=== PATIENT | female | born 1950 | race Hispanic/Latino ===

== ENCOUNTER 2018-01-24 21:34 | Emergency (ER) | payer MEDICARE ==
[~2018-01-24 21:34] MED LIST: GABA-531 PO; HYDR-4153 PO; HYDR25TA PO; INSU100V12 SQ; LISI40TA4 PO; METO50TA9 PO; NITR0.3T SL; PRAV20TA4 PO
[2018-01-24] MEDS ORDERED: METOCLOPRAMIDE 10 MG TABLET ONE (22:31)
== END 2018-01-24 22:38 | disposition home or self-care (01) ==
LOC: EDH 21:34
DX: R51 Headache (principal); E11.9 Type 2 diabetes mellitus without complications; I10 Essential (primary) hypertension; Z79.4 Long term (current) use of insulin

== ENCOUNTER → 2018-04-08 | Outpatient (CLI) | payer MEDICARE ==
[~2018-04-08] MED LIST changes: +DEXAMETHASONE SOD PHOSPHATE 10MG/ML 1ML VIAL ONE; +FENTANYL CITRATE PF 50 MCG/1 ML 2ML VIAL ONE; +GLYCOPYRROLATE 0.2 MG/ML 5 ML VIAL ONE; +LIDOCAINE PF 2% 5ML ABBOJECT ONE; +MIDAZOLAM HCL 1 MG/ML 2ML VIAL ONE; +NEOSTIGMINE 5MG/5ML SYR IV ONE; +PROPOFOL 10 MG/ML 20ML VIAL IV ONE
== END | disposition home or self-care (01) ==
LOC: SHCH 10:00
PROVIDERS: ATTEND Internal Medicine Cardiovascular Disease
DX: I35.0 Nonrheumatic aortic (valve) stenosis (principal)
CPT/HCPCS: 93306; J1100; J2001; J2250; J2704; J2710; J3010; J3490

== ENCOUNTER 2021-07-01 11:38 | Emergency (ER) | payer MEDICARE ==
[~2021-07-01] VITALS: Ht 162.6 cm; Wt 83.9 kg
[~2021-07-01 11:38] MED LIST changes: -DEXAMETHASONE SOD PHOSPHATE 10MG/ML 1ML VIAL ONE; -FENTANYL CITRATE PF 50 MCG/1 ML 2ML VIAL ONE; -GLYCOPYRROLATE 0.2 MG/ML 5 ML VIAL ONE; -LIDOCAINE PF 2% 5ML ABBOJECT ONE; -LISI40TA4 PO; +LISI40TA9 PO; -MIDAZOLAM HCL 1 MG/ML 2ML VIAL ONE; -NEOSTIGMINE 5MG/5ML SYR IV ONE; -PROPOFOL 10 MG/ML 20ML VIAL IV ONE
[2021-07-01 11:40] VITALS: BP 167/71
[2021-07-01] MEDS ORDERED: CYCLOBENZAPRINE HCL 10 MG TABLET PO ONE (12:30)
[2021-07-01] MEDS ORDERED: HYDROCODONE/ACETAMINOPHEN 5/325 MG TAB PO ONE (12:30)
[2021-07-01] MEDS ORDERED: KETOROLAC 30MG VIAL (30MG/ML) IM ONE (12:30)
[2021-07-01] MEDS ORDERED: NAPR-1180 PO (13:22)
[2021-07-01] MEDS ORDERED: CYCL10 PO (13:22)
[2021-07-01 13:31] VITALS: BP 157/82
[2021-07-04] MEDS ORDERED: SUCCINYLCHOLINE 200MG/10ML SYR ONE (08:55)
== END 2021-07-01 13:33 | disposition home or self-care (01) ==
LOC: EDH 11:38
DX: M54.41 Lumbago with sciatica, right side (principal); E11.9 Type 2 diabetes mellitus without complications; E78.00 Pure hypercholesterolemia, unspecified; I10 Essential (primary) hypertension; Z98.890 Other specified postprocedural states; Z79.899 Other long term (current) drug therapy
CPT/HCPCS: 72100; 96372; 99283; J1885

== ENCOUNTER → 2021-10-14 | Outpatient (CLI) | payer MEDICARE ==
[~2021-10-14] MED LIST changes: +CYCL10TA16 PO; +NAPR-1180 PO
== END | disposition home or self-care (01) ==
LOC: SHCH 08:29
PROVIDERS: ATTEND Internal Medicine Cardiovascular Disease
DX: I35.2 Nonrheumatic aortic (valve) stenosis with insufficiency (principal); I51.7 Cardiomegaly
CPT/HCPCS: 93306; 93356

== ENCOUNTER 2022-10-10 20:58 | Emergency (ER) | payer MEDICARE ==
[~2022-10-10] VITALS: Ht 160 cm; Wt 75.3 kg
[2022-10-10 21:35] LABS: APPEARANCE,URINE CLEAR (CLEAR); BILIRUBIN,URINE NEGATIVE (NEGATIVE); COLOR,URINE LIGHT-YELLOW (YELLOW); GLUCOSE, URINE (UA) 300 mg/dL (NEGATIVE); KETONES,URINE NEGATIVE (NEGATIVE); LEUKOCYTE ESTERASE ,URINE 250 Leu/uL (NEGATIVE); NITRATE,URINE NEGATIVE (NEGATIVE); OCCULT BLOOD,URINE NEGATIVE (NEGATIVE); PH,URINE 5.5 (5.0-8.0); PROTEIN,URINE 30 mg/dL (NEGATIVE); UROBILINOGEN,URINE 0.2 mg/dL (0.2-1.0)
[2022-10-10 21:39] LABS: BACTERIA,URINE RARE /HPF (None Seen); MUCUS,URINE RARE LPF (None Seen); SQUAMOUS EPITHELIAL CELL,UR RARE /HPF (0-2)
[2022-10-10] MEDS ORDERED: SULF1TAB42 PO (21:49)
[2022-10-10] MEDS ORDERED: CEFTRIAXONE 1G VIAL IM SCH (22:00)
[2022-10-10] MEDS ORDERED: LIDOCAINE HCL 1% 20 ML VIAL ONE (22:03)
[2022-10-10 22:15] VITALS: BP 152/68
== END 2022-10-10 22:17 | disposition home or self-care (01) ==
LOC: EDH 20:58
DX: N39.0 Urinary tract infection, site not specified (principal); E11.9 Type 2 diabetes mellitus without complications; E78.00 Pure hypercholesterolemia, unspecified; I10 Essential (primary) hypertension; Z79.899 Other long term (current) drug therapy; Z79.4 Long term (current) use of insulin; Z90.49 Acquired absence of other specified parts of digestive tract; Z98.890 Other specified postprocedural states
CPT/HCPCS: 99283; 87077; 87088; 87186; 81001; 96372; J0696

== ENCOUNTER 2022-10-24 16:56 | Emergency (ER) | payer MEDICARE ==
[~2022-10-24] VITALS: Ht 154.9 cm; Wt 84.4 kg
[~2022-10-24 16:56] MED LIST changes: +SULF1TAB42 PO
[2022-10-24 17:07] VITALS: BP 177/72
[2022-10-24 17:21] LABS: APPEARANCE,URINE CLEAR (CLEAR); BILIRUBIN,URINE NEGATIVE (NEGATIVE); COLOR,URINE LIGHT-YELLOW (YELLOW); GLUCOSE, URINE (UA) 200 mg/dL (NEGATIVE); KETONES,URINE NEGATIVE (NEGATIVE); LEUKOCYTE ESTERASE ,URINE NEGATIVE Leu/uL (NEGATIVE); NITRATE,URINE NEGATIVE (NEGATIVE); OCCULT BLOOD,URINE NEGATIVE (NEGATIVE); PH,URINE 5.5 (5.0-8.0); PROTEIN,URINE 20 mg/dL (NEGATIVE)
[2022-10-24 17:30] LABS: BACTERIA,URINE RARE /HPF (None Seen); MUCUS,URINE RARE LPF (None Seen); RBC,URINE 0-1 /HPF (0-1); SQUAMOUS EPITHELIAL CELL,UR FEW /HPF (0-2)
== END 2022-10-24 19:31 | disposition left against medical advice (07) ==
LOC: EDH 16:56
DX: M54.50 Low back pain, unspecified (principal); Z53.21 Procedure and treatment not carried out due to patient leaving prior to being seen by health care provider
CPT/HCPCS: 81001

== ENCOUNTER → 2022-12-25 | Outpatient (CLI) | payer MEDICARE | END | disposition home or self-care (01) | LOC: SHCH 10:00 | PROVIDERS: ATTEND Internal Medicine Cardiovascular Disease | DX: I35.0 Nonrheumatic aortic (valve) stenosis (principal) | CPT/HCPCS: 93306 ==

== ENCOUNTER → 2025-01-22 | Outpatient (CLI) | payer MEDICARE ==
[~2025-01-22] MED LIST changes: -HYDR-4153 PO; +HYDR25TA67 PO
--- NOTE | 2025-01-26 08:50 | HMCSR ---
APPROVED REPORT EXAM: Two-dimensional and M-mode echocardiogram with Doppler and color Doppler. INDICATION ICD: I35.0 Non-rheumatic aortic valve stenosis 2D Dimensions RVDd3.2 cmLVEF(%)63.9 (>50%)LVED Vol(simp.)86.0 mL IVSd0.9 (0.7-1.1cm)FS(%)35 %LVES Vol(simp.)29.0 mL LVDd4.6 (3.8-5.6cm)Ao Root(2D)2.6 (2.0-3.7cm)LVEF(%, simp.)66 % PWd0.9 (0.7-1.1cm)LVOT diam2.0 (1.8-2.4cm)LA ESV INDEX (BP)40.55 mL/m2 LVDs3.0 (2.5-4.0cm)IVC diam1.4 cm Aortic Valve AoV Vmax4.8 m/[place] GR92.3 mmHgLVOT Vmax1.2 m/s AoV VTI1.3 mAo Mean GR60.1 mmHgLVOT VTI0.32 m DERIC (VMAX)0.7 cm2Al P1/2T377 msAVA (VTI) 0.7 cm2 Mitral Valve MV E Vmax88.3 cm/sDECEL Cewi370 ms MV A Ckhu545.3 cm/sP 1/2 T65 ms E/A ratio0.8MVA (PHT)3.4 cm2 TDI E/E' Prlkog56.9E/E' Mgwmlpt40.9 Pulmonary Valve PV Vmax1.2 m/sPV VTI0.26 mPV Mean GR3 mmHg PV Peak GR5.6 mmHgPI End [place]. Emilio 0.9 cm/s Tricuspid Valve TR Vmax2.8 m/sRAP (EST) 3 hdUkZFYA75.2 mmHg TR Peak GR32.2 mmHg Left Ventricle Left ventricular cavity size is normal. There is normal LV segmental wall motion. There is normal lef t ventricular wall thickness. LVEF is 60-65%. Stage I diastolic dysfunction. Right Ventricle The right ventricle is normal size. The right ventricular systolic function is normal. Atria The left atrium is mildly dilated. The right atrium size is normal. Aortic Valve Aortic valve is trileaflet. The aortic valve is calcified and displays decreased opening. Mild aortic regurgitation. AV Dimensionless Index is 0.25 There is severe valvular aortic stenosis. Calculated a ortic valve area is 0.7 cm2 with maximum pressure gradient of 92 mmHg and mean pressure gradient of 6 0 mmHg. Mitral Valve Mitral valve leaflets are mildly calcified. Mitral annular calcification is mild. Mitral regurgitatio n is trace to mild. There is no mitral valve stenosis. Tricuspid Valve The tricuspid valve leaflets appear normal. There is mild tricuspid regurgitation. Right ventricular systolic pressure is estimated at 30-40 mmHg. Pulmonic Valve Pulmonic valve is not well visualized. There is trace pulmonic valvular regurgitation. Great Vessels The aortic root is normal in size. The IVC is normal in size and collapses >50% with inspiration. Pericardium No pericardial effusion. Conclusion LVEF is 60-65%. Stage I diastolic dysfunction. Aortic valve is trileaflet. The aortic valve is calcified and displays decreased opening. Mild aortic regurgitation. There is severe valvular aortic stenosis. Calculated aortic valve area is 0.7 cm2 with maximum pressu re gradient of 92.3 mmHg and mean pressure gradient of 60.1 mmHg.There is severe valvular aortic sten osis. Calculated aortic valve area is 0.7 cm2 with maximum pressure gradient of 92 mmHg and mean pre ssure gradient of 60 mmHg. Mitral regurgitation is trace to mild. There is mild tricuspid regurgitation. Right ventricular systolic pressure is estimated at 30-40 mmHg.
== END | disposition home or self-care (01) ==
LOC: SHCH 15:08
PROVIDERS: ATTEND Internal Medicine Cardiovascular Disease
DX: I08.3 Combined rheumatic disorders of mitral, aortic and tricuspid valves (principal)
CPT/HCPCS: 93306